=== PATIENT | male | born 2000 | race Asian ===

== ENCOUNTER 2023-08-23 19:50 | Emergency (ER) | payer OTHER ==
[~2023-08-23] VITALS: Ht 177.8 cm; Wt 105.0 kg
[2023-08-23 20:08] VITALS: BP 153/93; TEMP 98.5
[2023-08-23] MEDS ORDERED: Ibuprofen 400 MG TAB PO ONE (21:45)
[2023-08-23 23:16] VITALS: PULSE 82
== END 2023-08-24 04:39 | disposition home or self-care (01) ==
LOC: COL.ER 19:50
DX: U07.1 COVID-19 (principal); R50.9 Fever, unspecified; R05.9 Cough, unspecified; R09.81 Nasal congestion; R51.9 Headache, unspecified